=== PATIENT | male | born 1980 | race Two or more races ===

== ENCOUNTER 2019-10-12 17:40 | Emergency (ER) | payer SELFPAY ==
[~2019-10-12] VITALS: Ht 264.2 cm; Wt 77.3 kg
[2019-10-12 17:49] VITALS: Ht 264.2 cm; Wt 77.3 kg
[2019-10-12] MEDS ORDERED: CYCLOBENZAPRINE10 MG PO (18:27)
[2019-10-12 18:32] LABS: BASOPHILS 0.2 % (0-2); EOSINOPHILS 0.6 % (0-7); HEMATOCRIT 43.5 % (42.0-54.0); HEMOGLOBIN 14.8 g/dL (13.5-17.5); IMMATURE GRANULOCYTES 0.5 % (0-5); LYMPHOCYTES 18.3 % (15-50); MCH 28.5 pg (26.0-34.0); MCV 83.8 fL (80.0-100.0); MEAN PLATELET VOLUME 10.4 fL (7.4-10.4); MONOCYTES 7.3 % (2-11); NEUTROPHILS 73.1 % (40-80); PLATELET COUNT 187 10x3/uL (130-400); RBC 5.19 10x6/uL (4.20-6.10); RDW 12.8 % (11.5-14.5); WBC 11.2 10x3/uL (4.8-10.8)
[2019-10-12 18:46] LABS: ANION GAP 11.6 mmol/L (8-16); CALCIUM 8.8 mg/dL (8.5-10.1); CARBON DIOXIDE 28.1 mmol/L (21.0-32.0); CREATININE - SERUM 1.4 mg/dL (0.6-1.3); POTASSIUM - SERUM 3.7 mmol/L (3.5-5.1)
[2019-10-12 18:52] LABS: ALBUMIN 4.4 g/dL (3.4-5.0); BILIRUBIN - TOTAL 0.55 mg/dL (0.2-1.3); PROTEIN - SERUM 7.7 g/dL (6.4-8.2)
[2019-10-12 20:17] VITALS: BP 108/69
== END 2019-10-12 20:19 | disposition home or self-care (01) ==
LOC: D.ER 17:40
PROVIDERS: Family Medicine
DX: E86.0 Dehydration (principal); V89.2XXA Person injured in unspecified motor-vehicle accident, traffic, initial encounter; Y93.9 Activity, unspecified; Y92.9 Unspecified place or not applicable; M54.5 Low back pain; R68.84 Jaw pain